=== PATIENT | female | born 1965 | race Caucasian/White ===

== ENCOUNTER 2020-12-24 13:51 | Outpatient (CLI) | payer OTHER, SELFPAY ==
--- NOTE | 2020-12-28 15:08 | WPDHOLTEREM ---
Holter/Event Monitor Holter/Event Monitor Date of procedure: 12/24/20 Procedure Type: 48 hour holter monitor Indications: Palpitations Conclusion: 1. 48 hour holter monitor on 12/24/20. 2. Underlying rhythm is sinus rhythm. HR range 54-111 bpm; average HR 72 bpm. 3. There are 100 premature supraventricular complexes, 6 supraventricular couplets and 3 supraventricular bigeminy. No supraventricular tachycardia. 4. There are 11,966 premature ventricular complexes, 3,610 ventricular bigeminy and 9,797 ventricular trigeminy. No ventricular tachycardia. 5. No sinoatrial or atrioventricular blocks. No significant pauses greater than 2 seconds. 6. No symptoms available for correlation.
== END 2020-12-24 13:52 | disposition home or self-care (01) ==
PROVIDERS: PCP Family Medicine; Visit Provider Physician Assistant Medical
DX: R00.2 Palpitations (principal)
CPT/HCPCS: 93225; 93226

== ENCOUNTER 2021-02-10 12:22 | Outpatient (CLI) | payer OTHER, SELFPAY ==
--- NOTE | 2021-02-10 12:40 | ECHO_ITS ---
Patient Info Name: Lara Patricia Age: 55 years : 1965 Gender: Female Ht: 64 in Wt: 312 lbs BSA: 2.62 m2 HR: 75 bpm BP: 170 / 80 mmHg Heart Rhythm: Sinus Rhythm Technical Quality: Fair Exam Date: 02/10/2021 12:53 PM Exam Location: [facility] [place] [facility] Patient Status: Outpatient Admit Date: 02/10/2021 Staff Ordering Physician: Mayur Jackson DO Lamp Developer: Haleigh Lyons RDCS Attending Provider: Mayur Jackson DO Referring Physician: Manuel LANIER; Exam Type: CA echo dop color flow w con Study Info Indications I49.3 - Ventricular premature depolarization Complete two-dimensional, color flow and Doppler transthoracic echocardiogram is performed. Summary 1. Complete two-dimensional, color flow and Doppler transthoracic echocardiogram is performed. 2. Left ventricular chamber dimension is normal. 3. Left ventricular systolic function is normal, estimated at 60-65%. 4. The left ventricular diastolic function is grade I diastolic dysfunction. 5. E/e' 9 is minimally elevated. 6. Left atrial chamber dimension is mildly enlarged. Left Ventricle E/e' 9 is minimally elevated. Left ventricular chamber dimension is normal. Left ventricular systolic function is normal, estimated at 60-65%. The left ventricular diastolic function is grade I diastolic dysfunction. Right Ventricle Right ventricular chamber dimension is normal. Right ventricular systolic function is normal. Left Atria Left atrial chamber dimension is mildly enlarged. Right Atria Right atrial chamber dimension is normal. Aortic Valve The aortic valve is trileaflet. There is no aortic valve stenosis. There is no aortic valve regurgitation. Pulmonic Valve There is no pulmonic regurgitation. Mitral Valve There is no mitral valve stenosis. There is no mitral valve regurgitation. Tricuspid Valve There is no tricuspid valve regurgitation. Pericardium/Pleural There is no pericardial effusion. Inferior Vena Cava Normal inferior vena cava with >50% collapse upon inspiration consistent with normal right atrial pressure, 5 mmHg. Aorta The aortic root size at the sinus of Valsalva is normal. Left Ventricular Outflow Tract Name Value Normal LVOT 2D LVOT Diameter 2.34 cm LVOT Doppler LVOT Peak Gradient 4 mmHg LVOT Mean Gradient 2 mmHg LVOT VTI 24.41 cm LVOT VTI/AV VTI Ratio 0.65 LVOT Stroke Volume 104.69 ml LVOT CO 6.13 l/min LVOT CI 2.34 L/min/m2 Pulmonic Valve Name Value Normal RVOT Doppler RVOT Peak Gradient 2 mmHg PV Doppler PV Peak Gradient 5 mm
== END 2021-02-10 12:23 | disposition home or self-care (01) ==
PROVIDERS: PCP Family Medicine; Visit Provider Internal Medicine Cardiovascular Disease
DX: I49.3 Ventricular premature depolarization (principal)
CPT/HCPCS: 93306

== ENCOUNTER 2021-03-22 13:26 | Outpatient (CLI) | payer OTHER, SELFPAY ==
--- NOTE | 2021-04-05 16:29 | WPDHOMESLEEP ---
Sleep Study - Home Unattended Date of Study: 03/22/21 Ordering Provider: Mayur Jackson DO Interpreting Provider: Jessika Mitchell MD Home Sleep Study Type: Watch PAT Height: 1.63 m Weight: 136.078 kg Body Mass Index: 51.5 Neck Circumference (inches): 16 [place]: 1 Reason for Sleep Study Heart palpitations, hypersomnia. Sleep History Lara Patricia is a 55 year old female who has palpitations. 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 She does not awaken from sleep feeling short of breath. She occasionally awakens at night with heartburn belching and coughing. She does not know if she snores because she is single and lives alone. She does not snore loudly enough that others complain. She occasionally has trouble sleeping with a cold. She does not wake up gasping for breath at night. She does not have breathing problems at night observed by others. She does not sweat excessively night. She occasionally notices her heart pounding or beating irregularly. She occasionally falls asleep during the day, never involuntarily and never while driving. She does not have loss of muscle tone was strong emotion. She does not have daytime difficulties due to excessive sleepiness. She does not feel paralyzed on waking or falling asleep. She does not have vivid dreamlike scenes upon awakening or falling asleep. She does not feel afraid to go to sleep. She does not have nightmares. She frequently remembers her dreams. She occasionally has racing thoughts. She does not feel sad or depressed. She occasionally has anxiety. She occasionally has muscular tension. She does not notice parts of her body jerking. She does not kick at night. She occasionally has crawling and aching feelings in her legs which she attributes to arthritis. She does have arthritis pain at night. She frequently has morning jaw pain, has a history of TMJ and she clenches her teeth. She frequently grinds her teeth during night. She occasionally has bothered by pain during the day. She rarely is awakened by pain at night. She rarely wakes up feeling stiff the morning. She does not wake up with sore achy muscles are pain in the neck and spine. Normal bedtime between 9:10 p.m. falling asleep within 30 minutes waking around 230 or 3 in the morning to go to the bathroom. She stays awake for 30 minutes to 1 hour. She wakes the morning by 6 or 7:00 a.m.. Her weekend schedule is the same. She does not take naps. Most of the time she feels better in the morning compared other times a day. She occasionally wakes up feeling refreshed. habits: Never smoked tobacco. Caffeine 16 oz a day. No alcohol or recreational drugs. [facility] Past Medical History Medical History (Updated 04/05/21 @ 16:38 by Jessika Mitchell MD) Adult BMI 50.0-59.9 kg/sq m Dyslipidemia Hypertension Hypothyroidism Obesity Palpitations Symptomatic PVCs Family History Family History Father Cerebrovascular accident Mother Carcinoma of colon Grandparent Diabetes mellitus Social History Social History Smoking status: Never smoker Second hand tobacco smoke exposure: No Alcohol intake: current Substance use: never Substance use type: does not use Medications Home Medications Medication Instructions Recorded Confirmed Type levothyroxine 25 mcg tablet 25 mcg PO DAILY #30 tablet 01/15/21 03/28/21 Rx citalopram 10 mg tablet See Rx Instructions .ROUTE 02/11/21 03/28/21 Rx .COMPLEX #90 tablet hydrochlorothiazide 25 mg tablet 25 mg PO DAILY #90 tablet 02/11/21 03/28/21 Rx lisinopril 20 mg tablet 20 mg PO DAILY #90 tablet 02/11/21 03/28/21 Rx naltrexone 8 mg-bupropion 90 mg 2 tablet PO BID #120 tablet 02/11/21 03/28/21 Rx tablet,extended release Sleep Procedure The sleep study was completed using [employer]
[2021-04-05 16:38] VITALS: BMI 51.5
== END 2021-03-23 14:17 | disposition home or self-care (01) ==
LOC: ANHCSM 03-23 13:26
PROVIDERS: PCP Family Medicine; Visit Provider Internal Medicine Cardiovascular Disease
DX: G47.10 Hypersomnia, unspecified (principal); G47.33 Obstructive sleep apnea (adult) (pediatric)
CPT/HCPCS: 95800

== ENCOUNTER 2021-12-07 08:40 | Outpatient (CLI) | payer OTHER, SELFPAY ==
--- NOTE | ~2021-12-07 | XR_ITS ---
XR knee LT 3V DATE: 12/07/2021 09:11 INDICATION: Left knee pain TECHNIQUE: Langeloth and standing AP and lateral views COMPARISON: None FINDINGS: There is tricompartment osteoarthritis, most severe at the medial compartment, with severe joint space narrowing. There is periarticular spurring at all 3 compartments. No fracture or dislocation or joint effusion. No radiopaque intra-articular loose body or chondrocalcinosis. No periosteal reaction or bone destruc tion. IMPRESSION: Tricompartment osteoarthritis, most severe at the medial compartment Reviewed, dictated and finalized at location A. HEAD SAW OPERATOR IMPRESSION: Tricompartment osteoarthritis, most severe at the medial compartmen t
== END 2021-12-07 08:41 ==
LOC: MICIMG 08:43
PROVIDERS: PCP Physician Assistant Medical; Visit Provider Physician Assistant Medical
DX: M25.562 Pain in left knee (principal); M17.12 Unilateral primary osteoarthritis, left knee
CPT/HCPCS: 73562

== ENCOUNTER 2022-08-22 07:49 | Emergency (ER) | payer OTHER, SELFPAY ==
[2022-08-22 07:56] VITALS: BP 150/107; PULSE 84; RESP 17; TEMP 36.6; O2SAT 100
[2022-08-22] MEDS: methylPREDNISolone SOD SUCC 125 MG VIAL IV PUSH (08:05)
[2022-08-22] MEDS: diphenhydrAMINE HCl INJ 50 MG/ML VIAL 25 MG IV PUSH (08:05)
--- NOTE | 2022-08-22 08:28 | ED.ALLEREA ---
HPI - Allergic Reaction General Chief complaint: Allergic Reaction Stated complaint: angioedema, on lisinopril Time Seen by Provider: 08/22/22 07:52 History of Present Illness HPI narrative: Patient is a 56-year-old female who presents ER with concerns of allergic reaction. She reports last night she started having some tingling in her right upper lip. When she woke up this morning both of her lips were enlarged and tense. She has no sensation of swelling to her tongue or her throat. No difficulty breathing or swallowing. No difficulty speaking. Patient does take lisinopril. She has not had a reaction like this previously. No alleviating factors. No new dental pain but does report she has a bad tooth that she thought maybe it was related to initially. Related Data Allergies Allergy/AdvReac Type Severity Reaction Status Date / Time guaifenesin Allergy Mild hives Verified 11/23/21 07:52 Penicillins Allergy Mild Hives Verified 11/23/21 07:52 phenylephrine Allergy Mild hives Verified 11/23/21 07:52 phenylpropanolamine Allergy Mild HIVES Verified 11/23/21 07:52 Sulfa (Sulfonamide Allergy Mild Hives Verified 11/23/21 07:52 Antibiotics) lisinopril Allergy Severe angioedema Uncoded 08/22/22 11:20 Review of Systems Review of Systems: All systems reviewed & are unremarkable except as noted in HPI and below Constitutional: Constitutional: Denies chills and Denies fever(s) ENT: Denies nasal congestion and Denies sore throat Comments: Lip swelling Respiratory: Respiratory: Denies cough, Denies dyspnea and Denies wheezing Gastrointestinal: Gastrointestinal: Denies abdominal pain, Denies nausea and Denies vomiting Neurologic: Denies headache(s) and Denies focal weakness Comments: Lip tingling PMFSH Past Medical History Medical History Adult BMI 50.0-59.9 kg/sq m Dyslipidemia Hypertension Hypothyroidism Obesity Palpitations Symptomatic PVCs Family History Family History Father Cerebrovascular accident Mother Carcinoma of colon Grandparent Diabetes mellitus Social History Social History Second hand tobacco smoke exposure: No Alcohol intake: current Substance use: never Substance use type: does not use Exam Narrative: GENERAL: Well-appearing, obese, and in no acute distress. HEAD: Normocephalic, atraumatic. EYES: PERRL and EOMI. ENT: Mucous membranes moist. Normal-appearing posterior oropharynx. Upper and lower lips with angioedema. Tolerating oral secretions NECK: Supple. CHEST: Clear to auscultation. No respiratory distress. HEART: Regular rate and rhythm. Normal peripheral pulses. ABDOMEN: Soft, nontender, nondistended. EXTREMITIES: Normal range of motion. No edema. SKIN: Warm, dry, no rash. NEURO: Alert and oriented x3. PSYCH: Normal mood and affect. Course Course Emergency Course: Lips decreasing in size. Contacted patient's PCPs office who will have her follow-up. Patient be sent home with Benadryl and prednisone. Vital Signs Vital signs: Vital Signs Temperature 97.8 F 08/22/22 07:56 Pulse Rate 84 08/22/22 07:56 Respiratory Rate 17 08/22/22 07:56 Blood Pressure 150/107 H 08/22/22 07:56 Pulse Oximetry 100 08/22/22 07:56 Oxygen Delivery Room Air 08/22/22 07:56 Temperature 97.8 F 08/22/22 07:56 Pulse Rate 77 08/22/22 12:22 Respiratory Rate 18 08/22/22 12:22 Blood Pressure 156/58 H 08/22/22 12:22 Pulse Oximetry 100 08/22/22 12:22 Oxygen Delivery Room Air 08/22/22 07:56 MDM - Allergic Reaction Lab Data Result diagrams: 08/22/22 08:06 08/22/22 09:44 Labs: Lab Results 08/22/22 08/22/22 08/22/22 Range/Units 08:06 08:06 09:44 WBC 9.3 (4.5-10.0) K/mm3 RBC 5.01 (4.2-5.4) M/mm3 Hgb 15.2 H (12.0-15.0) g/dL Hct 46.7 (37.0
[2022-08-22] MEDS: FAMOTIDINE 20 MG/2 ML VIAL IV PUSH (08:29)
[2022-08-22 08:30] LABS: Basophils Absolute Auto 0.1 K/mm3 (0.0-0.1); Basophils Percent Auto 0.9 % (0.2-1.2); Eosinophils Absolute Auto 0.3 K/mm3 (0-0.3); Eosinophils Percent Auto 3.2 % (0-4.4); Hematocrit 46.7 % (37.0-47.0); Hemoglobin 15.2 g/dL (12.0-15.0); Immature Granulocyte Absolute 0.02 K/mm3 (0.00-0.031); Immature Granulocyte Percent A 0.2 % (0-0.5); Lymphocytes Percent Auto 30.2 % (18.3-44.2); Mean Corpuscular HGB Conc 32.5 g/dl (32-36); Mean Corpuscular Hemoglobin 30.3 pg (26-34); Mean Corpuscular Volume 93.2 fl (80-100); Mean Platelet Volume 10.4 fl (7.4-10.4); Monocytes Absolute Auto 0.8 K/mm3 (0.1-0.6); Monocytes Percent Auto 8.6 % (2.6-8.5); Neutrophils Absolute Auto 5.3 K/mm3 (1.3-6.7); Neutrophils Percent Auto 56.9 % (45.5-73.1); Platelet Count Result 375 k/mm3 (150-375); Red Blood Count 5.01 M/mm3 (4.2-5.4); Red Cell Distribution Width 13.3 % (11.5-14.5); White Blood Count 9.3 K/mm3 (4.5-10.0)
[2022-08-22 08:35] LABS: Prothrombin Time 12.4 Seconds (11.1-14.7)
[2022-08-22 08:36] LABS: Partial Thromboplastin Time 29.3 SECONDS (22.3-36.8)
[2022-08-22 09:33] VITALS: PULSE 68; RESP 18; O2SAT 99
[2022-08-22 10:08] LABS: Anion Gap 6 mmol/L (8-16); Blood Urea Nitrogen 11 mg/dL (7-17); Calcium 8.7 mg/dL (8.4-10.2); Carbon Dioxide 29 mmol/L (22-30); Chloride 102 mmol/L (98-107); Estimated CRCL calculation 176 ml/min; Estimated Glomerular Filt Rate > 60; Glucose 107 mg/dL (65-110); Potassium 4.5 mmol/L (3.4-5.0); Sodium 137 mmol/L (137-145)
[2022-08-22 12:22] VITALS: BP 156/58; PULSE 77; RESP 18; O2SAT 100
== END 2022-08-22 12:24 | disposition home or self-care (01) ==
PROVIDERS: Emergency Provider Emergency Medicine; PCP Physician Assistant Medical
DX: T78.3XXA Angioneurotic edema, initial encounter (principal); T46.4X5A Adverse effect of angiotensin-converting-enzyme inhibitors, initial encounter; E78.5 Hyperlipidemia, unspecified; I10 Essential (primary) hypertension; E03.9 Hypothyroidism, unspecified; E66.9 Obesity, unspecified; Z68.43 Body mass index [BMI] 50.0-59.9, adult
CPT/HCPCS: 36415; 80048; 85025; 85610; 85730; 96374; 96375; 99284; J1200; J2930

== ENCOUNTER 2023-07-10 00:13 | Day surgery (SDC) | payer OTHER, SELFPAY ==
[2023-06-29 14:00] VITALS: BMI 60.1
[2023-07-10 07:39] VITALS: BP 152/79; PULSE 69; RESP 20; TEMP 36.3; O2SAT 98
[2023-07-10] MEDS: LACTATED RINGERS 1,000 ML 150 ML IV CONT (07:40)
--- NOTE | 2023-07-10 08:05 | SUR.PREOP ---
Dr Ramsey notified pt is post menopausal. Order for Upreg discontinued.
--- NOTE | 2023-07-10 08:11 | PM.HPGS ---
History of Present Illness History of Present Illness Consent: Risks, benefits, and alternatives have been discussed and questions answered. Patient agrees to proceed with procedure. Chief complaint: Fam Hx of malignant neoplasm of digestive organs Narrative: Lara Patricia is a 57 year old female Presents for screening colonoscopy. Patient's family history is significant that her mother had colon cancer. Patient reports that her own weight appetite and bowel movements are normal. Patient denies abdominal pain. She has had no bleeding. Family history is as stated with her mother having had colon cancer. Review of Systems Review of Systems: Review of systems noncontributory. [facility] Past Medical History Medical History Adult BMI 50.0-59.9 kg/sq m Dyslipidemia Hypertension Hypothyroidism Obesity Palpitations Symptomatic PVCs Family History Family History Father Cerebrovascular accident Mother Carcinoma of colon Heart failure Grandparent Diabetes mellitus Sibling RLS (restless legs syndrome) Social History Social History Smoking status: Former smoker Tobacco type: cigarettes Second hand tobacco smoke exposure: No Alcohol intake: never Substance use: never Substance use type: does not use Lack of Transportation: No Lack of Food: Never True Current Housing: I Have Housing Concerned About Future Housing: No Difficulty Paying Gas/Electric Bills: No Difficulty Paying for Meds: No Currently Unemployed: No Education: Associate Degree Difficulty w/ Childcare or Family Care: No Living arrangements: alone Occupation/Education: occupation 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 Gender identity (if verbalized by the patient): Female Spiritual care concerns: No Meds Home Medications and Allergies Home Medications Medication Instructions Recorded Confirmed Type epinephrine 0.3 mg/0.3 mL 0.3 mg (0.3 mL) IM ONCE #2 ea 08/23/22 07/10/23 Rx injection, auto-injector (EpiPen 2-Jae) hydrochlorothiazide 25 mg tablet 25 mg PO DAILY #90 tabs 04/03/23 07/10/23 Rx levothyroxine 50 mcg tablet See Rx Instructions .Route 04/03/23 07/10/23 Rx .COMPLEX #90 tabs losartan 50 mg tablet 50 mg PO DAILY #90 tabs 04/24/23 07/10/23 Rx diclofenac sodium 75 mg 75 mg PO BID PRN pain #60 tabs 07/02/23 07/10/23 Rx tablet,delayed release Allergies Allergy/AdvReac Type Severity Reaction Status Date / Time lisinopril Allergy Severe Swelling Verified 07/10/23 07:37 of Lip/Tongue/Throat guaifenesin Allergy Mild hives Verified 07/10/23 07:37 Penicillins Allergy Mild Hives Verified 07/10/23 07:37 phenylephrine Allergy Mild hives Verified 07/10/23 07:37 phenylpropanolamine Allergy Mild HIVES Verified 07/10/23 07:37 Sulfa (Sulfonamide Allergy Mild Hives Verified 07/10/23 07:37 Antibiotics) Vital Signs Vital Signs - 24 hr 07/10/23 07:39 Temperature 97.3 F L Pulse Rate 69 Respiratory Rate 20 Blood Pressure 152/79 H Pulse Oximetry 98 Oxygen Delivery Room Air Exam Narrative: Physical exam reveals patient to be alert. Vital signs stable. HEENT exam is unremarkable. Patient is anicteric. Lungs are clear to auscultation and percussion. Heart is without murmur or extra sounds. Abdomen bowel sounds are present soft nontender with no organomegaly. Digital external rectal exam is normal. Assessment and Plan Assessment and plan (1) Family hx of colon cancer: Code(s): Z80.0 - Family history of malignant neoplasm of digestive organs Status: Acute Assessment and Plan: Patient's mother has had colon cancer. Plan for surveillance colonoscopy now and consider this a 5 year intervals.
--- NOTE | 2023-07-10 08:16 | WPDANESEPPF ---
Anes - Initial Pre Proc Eval Procedure: Operation Date: 07/10/23 09:00 Proposed Procedures p Colonoscopy - Parmjit Avelar MD Date/Time: 07/10/23 08:16 Surgeon: Parmjit Avelar MD Pre Op Diagnosis: Fam Hx of malignant neoplasm of digestive organs Patient Data Age: 57 Gender: F Height: 1.63 m Weight: 157.6 kg Last Vital Signs Temp 97.3 F L 07/10/23 07:39 Pulse 69 07/10/23 07:39 Resp 20 07/10/23 07:39 BP 152/79 H 07/10/23 07:39 Pulse Ox 98 07/10/23 07:39 O2 Del Method Room Air 07/10/23 07:39 Allergies Allergy/AdvReac Type Severity Reaction Status Date / Time lisinopril Allergy Severe Swelling Verified 07/10/23 07:37 of Lip/Tongue/Throat guaifenesin Allergy Mild hives Verified 07/10/23 07:37 Penicillins Allergy Mild Hives Verified 07/10/23 07:37 phenylephrine Allergy Mild hives Verified 07/10/23 07:37 phenylpropanolamine Allergy Mild HIVES Verified 07/10/23 07:37 Sulfa (Sulfonamide Allergy Mild Hives Verified 07/10/23 07:37 Antibiotics) Home Medications Medication Instructions Recorded Confirmed Type epinephrine 0.3 mg/0.3 mL 0.3 mg (0.3 mL) IM ONCE #2 ea 08/23/22 07/10/23 Rx injection, auto-injector (EpiPen 2-Jae) hydrochlorothiazide 25 mg tablet 25 mg PO DAILY #90 tabs 04/03/23 07/10/23 Rx levothyroxine 50 mcg tablet See Rx Instructions .Route 04/03/23 07/10/23 Rx .COMPLEX #90 tabs losartan 50 mg tablet 50 mg PO DAILY #90 tabs 04/24/23 07/10/23 Rx diclofenac sodium 75 mg 75 mg PO BID PRN pain #60 tabs 07/02/23 07/10/23 Rx tablet,delayed release Patient hx anesthesia problems: none Family hx anesthesia problems: none Results Review: All pre-operative results and documents have been reviewed as part of the pre-operative evaluation. COUNT INCLUDES THE [facility] Past Medical History Medical History Adult BMI 50.0-59.9 kg/sq m Dyslipidemia Hypertension Hypothyroidism Obesity Palpitations Symptomatic PVCs Family History Family History Father Cerebrovascular accident Mother Carcinoma of colon Heart failure Grandparent Diabetes mellitus Sibling RLS (restless legs syndrome) Social History Social History Smoking status: Former smoker Tobacco type: cigarettes Second hand tobacco smoke exposure: No Alcohol intake: never Substance use: never Substance use type: does not use Lack of Transportation: No Lack of Food: Never True Current Housing: I Have Housing Concerned About Future Housing: No Difficulty Paying Gas/Electric Bills: No Difficulty Paying for Meds: No Currently Unemployed: No Education: Associate Degree Difficulty w/ Childcare or Family Care: No Living arrangements: alone Occupation/Education: occupation 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 Informed Consent: The patient's anesthetic plan and its attendant risks and benefits were discussed with the patient/family/POA. Questions were solicited and answers provided to the satisfaction of the patient/family/POA.
[2023-07-10 09:15] VITALS: BP 116/74; PULSE 71; RESP 20; O2SAT 96
[2023-07-10 09:25] VITALS: BP 144/87; PULSE 62; RESP 16; O2SAT 99
[2023-07-10 09:35] VITALS: BP 135/55; PULSE 63; RESP 20; O2SAT 97
== END 2023-07-10 09:44 | disposition home or self-care (01) ==
PROVIDERS: PCP Physician Assistant Medical; Visit Provider Internal Medicine Gastroenterology
PROC: 0DJD8ZZ Inspection of Lower Intestinal Tract, Via Natural or Artificial Opening Endoscopic (ICD-10-PCS; CPT 45378; principal; 2023-07-10 09:00)
DX: Z12.11 Encounter for screening for malignant neoplasm of colon (principal); K64.8 Other hemorrhoids; K57.30 Diverticulosis of large intestine without perforation or abscess without bleeding; Z80.0 Family history of malignant neoplasm of digestive organs; I10 Essential (primary) hypertension; E03.9 Hypothyroidism, unspecified; E78.5 Hyperlipidemia, unspecified; E66.01 Morbid (severe) obesity due to excess calories; Z68.43 Body mass index [BMI] 50.0-59.9, adult; Z87.891 Personal history of nicotine dependence
CPT/HCPCS: 45378; J2704; J7120

== ENCOUNTER 2024-04-02 11:29 | Outpatient (CLI) | payer SELFPAY ==
--- NOTE | ~2024-04-02 | MM_ITS ---
EXAMINATION: MM screening tien BI w latia HISTORY: Screening mammogram TECHNIQUE: Craniocaudal and mediolateral oblique 3-D tomosynthesis images were obtained and synthetic 2-D images were generated. CAD analysis was submitted and interpreted. COMPARISON: 04/25/2019 BREAST PARENCHYMAL COMPOSITION:Not Dense. There are scattered areas of fibroglandular density. FINDINGS: No suspicious mass, calcification, or architectural distortion are identified in either rich ast to suggest malignancy. There has been no suspicious interval change. IMPRESSION: No mammographic evidence of malignancy. Recommend routine screening mammography in one year. BI-RADS Category 1: Negative Reviewed, dictated and finalized at location .
== END 2024-04-02 11:30 ==
PROVIDERS: PCP Family Medicine; Visit Provider Physician Assistant Medical
DX: Z12.31 Encounter for screening mammogram for malignant neoplasm of breast (principal)
CPT/HCPCS: 77063; 77067

== ENCOUNTER 2024-07-16 08:42 | Emergency (ER) | payer SELFPAY ==
[2024-07-16 08:50] VITALS: BP 162/74; PULSE 67; RESP 12; TEMP 36.4; O2SAT 100
[2024-07-16 09:15] VITALS: BP 148/64; PULSE 61
[2024-07-16] MEDS: SODIUM CHLORIDE 0.9% IV 1,000 ML 999 ML IV CONT (10:13)
[2024-07-16 10:16] LABS: Basophils Absolute Auto 0.1 K/mm3 (0.0-0.1); Basophils Percent Auto 0.7 % (0.2-1.2); Eosinophils Absolute Auto 0.3 K/mm3 (0-0.3); Eosinophils Percent Auto 2.8 % (0-4.4); Hematocrit 45.1 % (37.0-47.0); Hemoglobin 14.8 g/dL (12.0-15.0); Immature Granulocyte Absolute 0.03 K/mm3 (0.00-0.031); Immature Granulocyte Percent A 0.3 % (0-0.5); Lymphocytes Absolute Auto 2.36 K/mm3 (0.9-3.2); Lymphocytes Percent Auto 24.7 % (18.3-44.2); Mean Corpuscular HGB Conc 32.8 g/dl (32-36); Mean Corpuscular Hemoglobin 30.1 pg (26-34); Mean Corpuscular Volume 91.9 fl (80-100); Mean Platelet Volume 9.5 fl (7.4-10.4); Monocytes Absolute Auto 0.8 K/mm3 (0.1-0.6); Monocytes Percent Auto 7.9 % (2.6-8.5); Neutrophils Absolute Auto 6.1 K/mm3 (1.3-6.7); Neutrophils Percent Auto 63.6 % (45.5-73.1); Platelet Count Result 376 k/mm3 (150-375); Red Blood Count 4.91 M/mm3 (4.2-5.4); Red Cell Distribution Width 13.5 % (11.5-14.5); White Blood Count 9.6 K/mm3 (4.5-10.0)
[2024-07-16 10:25] LABS: Anion Gap 8 mmol/L (4-12); Blood Urea Nitrogen 10 mg/dL (7-17); Carbon Dioxide 33 mmol/L (22-30); Chloride 98 mmol/L (98-107); Estimated CRCL calculation 127 ml/min; Estimated Glomerular Filt Rate > 60; Glucose 98 mg/dL (65-110); Potassium 4.2 mmol/L (3.4-5.0); Sodium 139 mmol/L (137-145)
--- NOTE | 2024-07-16 10:41 | ED.EPISTAXIS ---
HPI - Epistaxis General Chief complaint: Epistaxis Stated complaint: nose bleed, ?htn Time Seen by Provider: 07/16/24 09:02 Source: patient Mode of arrival: ambulatory Limitations: no limitations History of Present Illness HPI Narrative: Patient is a 58-year-old female who presents the ED with report of left-sided epistaxis and hypertension. Patient reports she has had sinus drainage over the last 2 days. She woke up this morning and had a profuse nosebleed from her left-sided nose. She held pressure and was able to control the bleeding. She notes last time she had a nosebleed she was found to have elevated blood pressure. She does have history of hypertension and is on losartan and hydrochlorothiazide. Did not check her blood pressure this morning, but decided to come here to ensure everything was okay. Patient did report feeling mildly lightheaded earlier today, denies any symptoms currently. She is not on any anticoagulation. Related Data Allergies Allergy/AdvReac Type Severity Reaction Status Date / Time lisinopril Allergy Severe Swelling Verified 07/16/24 08:50 of Lip/Tongue/Throat guaifenesin Allergy Mild hives Verified 07/16/24 08:50 Penicillins Allergy Mild Hives Verified 07/16/24 08:50 phenylephrine Allergy Mild hives Verified 07/16/24 08:50 phenylpropanolamine Allergy Mild HIVES Verified 07/16/24 08:50 Sulfa (Sulfonamide Allergy Mild Hives Verified 07/16/24 08:50 Antibiotics) Review of Systems Review of Systems: All systems reviewed & are unremarkable except as noted in HPI. All systems reviewed & are unremarkable except as noted in HPI and below PMFSH Past Medical History Medical History Adult BMI 50.0-59.9 kg/sq m Dyslipidemia Hypertension Hypothyroidism Obesity Palpitations Symptomatic PVCs Surgical History Surgical History History of cholecystectomy Family History Family History Father Cerebrovascular accident Mother Carcinoma of colon Heart failure Grandparent Diabetes mellitus Sibling RLS (restless legs syndrome) Social History Social History (Reviewed 07/16/24 @ 11:14 by KARL Tatum Smoking status: Former smoker Tobacco type: cigarettes Second hand tobacco smoke exposure: No Alcohol intake: current Alcohol use details: rarely Substance use: never Substance use type: does not use Do You Feel Safe in your Home?: Yes Lack of Transportation: No Lack of Food: Never True Current Housing: I Have Housing Concerned About Future Housing: No Difficulty Paying Gas/Electric Bills: No Difficulty Paying for Meds: No Currently Unemployed: No Education: Associate Degree Difficulty w/ Childcare or Family Care: No Living arrangements: alone Occupation/Education: occupation 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 HEAD: Normocephalic, atraumatic. ENT: Dried blood around left nare. No active epistaxis. No obvious areas of focal bleeding. No septal hematoma. Posterior pharynx is clear. No evidence of posterior bleeding. RESPIRATORY: Airway patent, respirations nonlabored. Clear to auscultation bilaterally, no rales, rhonchi, wheezing. CARDIOVASCULAR: Regular rate and rhythm without murmurs, rubs, or gallops. MUSCULOSKELETAL: Moves all extremities. No gross deformities. SKIN: Warm, dry, normal color. NEURO: A&O X3. Speech clear. Cranial nerves II-XII grossly intact. Steady gait. No ataxic movements. no focal deficits. PSYCHIATRIC:
[2024-07-16 11:15] VITALS: BP 128/93; PULSE 63; O2SAT 96
[2024-07-16 11:29] VITALS: BP 163/93; PULSE 65; RESP 16; TEMP 36.8; O2SAT 100
== END 2024-07-16 11:34 | disposition home or self-care (01) ==
PROVIDERS: Emergency Provider Physician Assistant; PCP Family Medicine
DX: R04.0 Epistaxis (principal); I10 Essential (primary) hypertension; E78.5 Hyperlipidemia, unspecified; E03.9 Hypothyroidism, unspecified; E66.9 Obesity, unspecified; Z68.43 Body mass index [BMI] 50.0-59.9, adult; Z90.49 Acquired absence of other specified parts of digestive tract; Z87.891 Personal history of nicotine dependence; Z79.899 Other long term (current) drug therapy
CPT/HCPCS: 36415; 80048; 85025; 96360; 99283; J7030

== ENCOUNTER 2025-04-06 09:49 | Outpatient (CLI) | payer SELFPAY ==
--- NOTE | ~2025-04-06 | MM_ITS ---
EXAMINATION: MM screening tien BI w latia HISTORY: Screening mammogram TECHNIQUE: Craniocaudal and mediolateral oblique 3-D tomosynthesis images were obtained and synthetic 2-D images were generated. CAD analysis was submitted and interpreted. COMPARISON: 04/02/2024, 04/25/2019 BREAST PARENCHYMAL COMPOSITION:Not Dense. The breasts are almost entirely fatty FINDINGS: No suspicious mass, calcification, or architectural distortion are identified in either rich ast to suggest malignancy. There has been no suspicious interval change. IMPRESSION: No mammographic evidence of malignancy. Recommend routine screening mammography in one year. BI-RADS Category 1: Negative Reviewed, dictated and finalized at location .
== END 2025-04-06 09:50 | disposition home or self-care (01) ==
PROVIDERS: PCP Family Medicine; Visit Provider Obstetrics & Gynecology
DX: Z12.31 Encounter for screening mammogram for malignant neoplasm of breast (principal)
CPT/HCPCS: 77063; 77067